=== PATIENT | female | born 1980 | race African-American/Black ===

== ENCOUNTER 2023-06-14 07:26 | Emergency (ER) | payer SELFPAY ==
[~2023-06-14] VITALS: Ht 167.6 cm; Wt 85.0 kg
[2023-06-14 07:35] VITALS: TEMP 98.2; O2SAT 98
[2023-06-14 08:30] VITALS: BP 212/129; PULSE 84; RESP 18
[2023-06-14] MEDS: IBUPROFEN 400MG TABLET PO ONE (08:30)
== END 2023-06-14 11:10 | disposition home or self-care (01) ==
LOC: ER 07:26
DX: M25.532 Pain in left wrist (principal); M79.645 Pain in left finger(s); I10 Essential (primary) hypertension; Z98.51 Tubal ligation status
CPT/HCPCS: 29125; 73110; 73130; 99284

== ENCOUNTER 2023-06-16 05:30 | Emergency (ER) | payer SELFPAY ==
[~2023-06-16] VITALS: Ht 165.1 cm; Wt 81.0 kg
[2023-06-16 05:59] VITALS: BP 224/126; PULSE 92; RESP 18; TEMP 98; O2SAT 100
[2023-06-16] MEDS: TRAMADOL 50MG TABLET PO ONE (09:02)
[2023-06-16] MEDS ORDERED: IBUP-2029 MT (09:32)
== END 2023-06-16 10:24 | disposition home or self-care (01) ==
LOC: ER 05:30
DX: S69.92XA Unspecified injury of left wrist, hand and finger(s), initial encounter (principal); I10 Essential (primary) hypertension; X58.XXXA Exposure to other specified factors, initial encounter; Y93.89 Activity, other specified; Y92.89 Other specified places as the place of occurrence of the external cause; Y99.8 Other external cause status
CPT/HCPCS: 29125; 73110; 73130; 99284